=== PATIENT | male | born 2000 | race Caucasian/White ===

== ENCOUNTER 2024-06-08 06:21 | Emergency (ER) | payer OTHER ==
[2024-06-08] MEDS ORDERED: HYDROmorphone 0.5 MG/0.5 ML SYRINGE ONE (07:28)
[2024-06-08] MEDS ORDERED: PROPOFOL 20 ML ONE (07:29)
== END 2024-06-08 08:27 | disposition home or self-care (01) ==
LOC: ERS 06:21
DX: S43.004A Unspecified dislocation of right shoulder joint, initial encounter (principal); Z55.6 Problems related to health literacy; W19.XXXA Unspecified fall, initial encounter
CPT/HCPCS: 23650; 96374; J1171; J2704